=== PATIENT | male | born 1980 | race Caucasian/White ===

== ENCOUNTER 2020-12-24 09:27 | Outpatient (REF) | payer OTHER, SELFPAY ==
--- NOTE | ~2020-12-24 | XR_ITS ---
EXAMINATION: XR ABDOMEN KUB CLINICAL INDICATION: Nephrolithiasis COMPARISON: None TECHNIQUE: AP view of the abdomen. FINDINGS: No calcifications are seen. Bowel gas pattern is normal. Bony structures are normal. XR/XR KUB IMPRESSION: Unremarkable examination.
== END 2020-12-24 09:28 | disposition home or self-care (01) ==
LOC: HO.XRAY 09:27
PROVIDERS: Visit Provider Urology
DX: N20.0 Calculus of kidney (principal)
CPT/HCPCS: 74018; 88300

== ENCOUNTER 2020-12-25 16:50 | Outpatient (REF) | payer OTHER, SELFPAY ==
[2020-12-31 17:56] LABS: Stone Source STONE
== END 2020-12-25 16:51 | disposition home or self-care (01) ==
LOC: HO.LNP 16:50
PROVIDERS: Visit Provider Urology
DX: N20.0 Calculus of kidney (principal)
CPT/HCPCS: 82365

== ENCOUNTER → 2020-12-31 10:30 | Outpatient (BNVA) | payer OTHER, SELFPAY | PROVIDERS: Visit Provider Urology ==

== ENCOUNTER 2021-02-05 08:49 | Outpatient (REF) | payer OTHER, SELFPAY ==
--- NOTE | ~2021-02-05 | CT_ITS ---
EXAMINATION: CT ABDOMEN AND PELVIS WITHOUT CONTRAST CLINICAL INFORMATION: Urinary tract calculi COMPARISON: CT abdomen and pelvis noncontrast 11/27/2019, KUB 12/24/2020 TECHNIQUE: Multidetector volumetric imaging was performed from the superior aspect of the liver through the pubic symphysis. Sagittal and coronal reformatted images were obtained on the technologist's workstation. No oral or intravenous contrast. This CT examination was performed using dose optimization techniques as appropriate, variously including the following: *Automated exposure control *Adjustment of mA and/or kV according to patient size (this includes techniques or standardized protocols for targeted exams where dose is matched to indication/reason for exam; i.e. extremities or head) *Use of iterative reconstruction technique DLP: 551 mGy-cm FINDINGS: LUNG BASES: The visualized lung bases are unremarkable. LIVER, GALLBLADDER, AND BILIARY TREE: The liver is normal in size, shape, and attenuation. No focal hepatic lesion or biliary ductal dilatation is present. The gallbladder is unremarkable with no evidence of radiopaque gallstones, gallbladder wall thickening, or obvious pericholecystic inflammatory changes. PANCREAS: Unremarkable. SPLEEN: Unremarkable. ADRENAL GLANDS: Unremarkable. KIDNEYS AND URETERS: There is a calculus distal right ureter within 1.5 cm of the bladder, measuring 4 mm in width by 7 mm in length and 537HU attenuation. There is no hydronephrosis or perinephric stranding. A punctate nonobstructing calculus is present right lower pole measuring under 3 mm. The kidneys are normal in size and contour and attenuation. There is no left hydronephrosis or hydroureter. No definite left urinary tract calculi. BLADDER: Calculus central bladder base measures 1.4 x 1.3 x 1.1 cm and 615 HU attenuation. GASTROINTESTINAL TRACT: There is no bowel obstruction or acute inflammatory changes in the bowel or mesentery. The appendix is distended with high attenuation material 165 HU either retained barium or appendicolith, measuring 0.8 cm diameter by 3 cm in length. This represents new finding from prior CT 11/27/2019. There are no periappendiceal inflammatory changes. No ascites or fluid collection. ABDOMINAL WALL: No significant hernia is appreciated. LYMPH NODES: No lymphadenopathy. VASCULAR: Unremarkable. PELVIC VISCERA: Unremarkable. OSSEOUS STRUCTURES: Unremarkable. CT/CT abdomen pelvis wo con IMPRESSION: 1. Nonobstructing distal right ureteral calculus 4 x 7 mm. Punctate nonobstructing right lower pole calculus under 3 mm. Bladder base calculus 14 mm. 2. No hydronephrosis or perinephric stranding. 3. New appendicolith versus retained barium in appendix 0.8 cm diameter by 3 cm length. No periappendiceal inflammatory changes.
== END 2021-02-05 08:50 | disposition home or self-care (01) ==
LOC: HO.CT 08:49
PROVIDERS: Visit Provider Urology
DX: N20.0 Calculus of kidney (principal)
CPT/HCPCS: 74176

== ENCOUNTER → 2021-02-11 11:27 | Outpatient (BNVA) | payer OTHER, SELFPAY | PROVIDERS: Visit Provider Urology ==

== ENCOUNTER 2021-02-24 06:57 | Day surgery (SDC) | payer OTHER, SELFPAY ==
--- NOTE | 2021-02-20 15:31 | HO.ANESPROP2 ---
Documented by User: Sally Ramos 02/20/21 15:31 HPI - Anesthesia Eval Consult details Narrative: 40yo M for Cystoscopy Bladder Stone Removal PMFSH Active Problems Active Problems: All Active Problems (Updated 02/18/21 @ 10:45 by Jj Tello MD) Cystine stones (Acute) Bladder stones (Acute) Nephrolithiasis (Acute) Past Medical History Medical History Asthma Biliary sludge History of urinary calculi Surgical History Surgical History No history of previous surgery Social History Social History Smoking Status: Never smoker Use of substances other than those prescribed or required for medical reasons: No Advance Directives: No Advance Directives Information Provided: Yes Meds Allergies Allergy/AdvReac Type Severity Reaction Status Date / Time amoxicillin Allergy Unknown hives Verified 02/24/21 07:17 pseudoephedrine [Sudafed] Allergy Unknown hives Verified 02/24/21 07:17 Sulfa (Sulfonamide Allergy Unknown hives Verified 02/24/21 07:17 Antibiotics) Exam Exam Date and Time: February 20, 2021 1531 Assessment and Plan Assessment Anesthesia Assessment: Chart Reviewed Documented by User: Chetna Granado 02/24/21 08:25 PMFSH Past Medical History Medical History Asthma Biliary sludge History of urinary calculi Surgical History Surgical History No history of previous surgery Social History Social History Smoking Status: Never smoker Use of substances other than those prescribed or required for medical reasons: No Advance Directives: No Advance Directives Information Provided: Yes Meds Allergies Allergy/AdvReac Type Severity Reaction Status Date / Time amoxicillin Allergy Unknown hives Verified 02/24/21 07:17 pseudoephedrine [Sudafed] Allergy Unknown hives Verified 02/24/21 07:17 Sulfa (Sulfonamide Allergy Unknown hives Verified 02/24/21 07:17 Antibiotics) Exam Airway Mallampati Class: III TM Dist: >3cm Neck ROM: Full Loose/Missing/Broken Teeth: No Heart: RRR Lungs: CTA Assessment and Plan Assessment Anesthesia Assessment: Anesthesia Plan Discussed and Chart Reviewed Final Anesthetic Review NPO: Yes ASA Class: II Final Preanesthetic Review: Meds/Allgs Chart Reviewed, Consent Obtained/Reviewed and Anes Risks/Benef Reviewed Patient Risk: Low Procedure Risk: Low Anesthetic Plan Anesthetic Plan: GA Disposition: Standard PACU
[2021-02-24] VITALS (7 sets, daily range): BP systolic 124–144; BP diastolic 73–102; PULSE 70–87; RESP 16–18; TEMP 35.7–36.6; O2SAT 96–99; BMI 30.8
--- NOTE | 2021-02-24 07:44 | MHC.SHP ---
Pre-Procedural Eval Section A The patient is an INPATIENT: No Changes since office visit: Yes Cold of Flu in the past 2 weeks, Yes New Medical Problems, Yes Changes in Medication and Yes Patient answered all questions The History & Physical has been completed within 30 days and I have reviewed it.: Yes Section B Chief Complaint: calculus in bladder Allergies: Allergies Allergy/AdvReac Type Severity Reaction Status Date / Time amoxicillin Allergy Unknown hives Verified 02/24/21 07:17 pseudoephedrine [Sudafed] Allergy Unknown hives Verified 02/24/21 07:17 Sulfa (Sulfonamide Allergy Unknown hives Verified 02/24/21 07:17 Antibiotics) Plan Diagnosis/Plan: Unchanged (bladder stone removal with retrograde right) I have reviewed the history and physical and performed a pertinent physical examination on my patient. No changes have occurred unless specified.
[2021-02-24] MEDS: Lactated Ringers 1,000 ML 100 ML IVCONT (07:50)
[2021-02-24] MEDS: levoFLOXacin 500 MG TABLET PO (07:50)
--- NOTE | 2021-02-24 08:57 | PM.OP ---
Brief Operative Note Date of Service: 02/24/21 Pre-op diagnosis: Bladder stone and right distal ureteric stone Post-op diagnosis: other (Bladder stone) Procedure: Laser of bladder stone, right retrograde Surgeon: Jj Tello MD Anesthesia: GLMA Was an Senior Electrical Design Engineer used for this Procedure?: No Estimated blood loss (mL): 0 Pathology: other Condition: stable Disposition: same day
--- NOTE | 2021-02-24 08:58 | W.PM.OPN ---
Operative Note Operative Note Date of Service: 02/24/21 Narrative: PreOperative Diagnosis: Bladder stone and question of distal right ureteric stone Post Operative Diagnosis: Bladder stone Procedure: Laser of bladder stone greater than 2 cm, right retrograde Surgeon: Dr Jj Tello Anesthesia: General Indications for procedure: Dave is a cystine stone former. He was complaining of right testicle pain and urgency frequency. On imaging had a bladder stone and a distal right ureteric stone. He feels he passed the ureteric stone last week and brought in a sample. He is still having urgency and frequency suggestive of the 2 cm bladder stone. Recommendation is intervention Procedure: After informed consent was verified the patient was brought to the operating room and placed in a supine position. anesthesia was administered per protocol. Patient was prepped and draped in sterile fashion. Safety pause time-out was observed. Antibiotics being given. A resectoscope was placed with the laser bridge. There was a 2-1/2 to 3 cm cystine stone within the bladder. Using a holmium laser with dusting settings the stone was broken into small pieces. This took approximately 40 minutes. All stone fragments were removed on completion A right retrograde examination was performed which showed no filling defect of the distal or proximal right ureter. He tolerated procedure well was extubated in operating room and transferred in stable condition to the recovery area Pathology: Cystine stone Drains:
[2021-02-24] MEDS: traMADoL HCL 50 MG TABLET PO (09:25)
[2021-02-24] MEDS: Phenazopyridine HCL 100 MG TABLET PO (09:27)
--- NOTE | 2021-02-24 10:07 | PC.NURSE ---
0948 MONITORS AND IVF DCD ASST OOB CH STEADY IV DCD DRESSED SELF AT BS CALL JIMENEZ IN [facility],PLAN TO AMB TO DC
== END 2021-02-24 10:11 | disposition home or self-care (01) ==
PROVIDERS: Visit Provider Urology
PROC: 0TCB8ZZ Extirpation of Matter from Bladder, Via Natural or Artificial Opening Endoscopic (ICD-10-PCS; CPT 52352; principal; 2021-02-24 08:30)
DX: N21.0 Calculus in bladder (principal); E72.09 Other disorders of amino-acid transport; Z87.442 Personal history of urinary calculi; J45.909 Unspecified asthma, uncomplicated; Z88.0 Allergy status to penicillin; Z88.2 Allergy status to sulfonamides; Z88.8 Allergy status to other drugs, medicaments and biological substances
CPT/HCPCS: 52318; 88300; C1758; C1769; J1100; J1885; J2250; J2405; J3010; Q9967